=== PATIENT | female | born 2000 ===

== ENCOUNTER 2025-03-08 20:17 | Inpatient (IN) | payer SELFPAY ==
[2025-03-08] MEDS ORDERED: Ondansetron PF 4 MG/2 ML Vial IVP PRN (20:51)
[2025-03-08] MEDS ORDERED: Tranexamic Acid 1,000 MG/10 ML VIAL IVP PRN (20:51)
[2025-03-08] MEDS ORDERED: Diphenoxylate HCl/Atropine Tablet PO PRN (20:51)
[2025-03-08] MEDS ORDERED: Carboprost 250 MCG/ML AMP IM PRN (20:51)
[2025-03-08] MEDS ORDERED: Acetaminophen 500 MG TAB PO PRN (20:51)
[2025-03-08] MEDS ORDERED: Lidocaine 1% (PF) 30 ML VIAL SC PRN (20:51)
[2025-03-08] MEDS ORDERED: hydrALAZINE 20 MG/ML VIAL SLOW IVP PRN (20:51)
[2025-03-08] MEDS ORDERED: Oxytocin 30 units/NS 500 ML 500 ML IV SCH (21:00)
[2025-03-08 21:05] VITALS: BMI 30.9
[2025-03-08 21:10] LABS: Hematocrit 39.0 % (34.9-44.5); Hemoglobin 13.3 g/dL (12.0-15.5); Mean Corpuscular Hemoglobin 27.5 pg (27.0-33.0); Mean Corpuscular Volume 80.7 fL (81.6-98.3); Platelet Count 335 10x3/uL (150-450); Red Blood Cell (RBC) Count 4.83 10x6/uL (3.90-5.03); White Blood Cell (WBC) Count 16.93 10x3/uL (3.5-10.5)
[2025-03-08 21:54] LABS: Syphilis Antibody Index 0.07 S/CO (<1.00 Non-Reactive)
[2025-03-08 21:55] LABS: Hep B Surf Ag - L&D Non-Reactive S/CO (NonReactive)
[2025-03-08] MEDS ORDERED: Oxytocin 10 UNITS/ML VIAL ONE (22:06)
[2025-03-08] MEDS ORDERED: Oxytocin 10 UNITS/ML VIAL IM SCH (22:15)
[2025-03-09] MEDS: Methylergonovine 0.2 MG/ML VIAL IM PRN (03:14)
[2025-03-09] MEDS: Ibuprofen 800 MG TAB PO PRN (05:10)
[2025-03-09] MEDS ORDERED: HYDROcodone/Acetaminophen 5/325 mg Tablet PO PRN (05:13)
[2025-03-09] MEDS ORDERED: Boostrix 0.5 ML (Tdap) VIAL (>/=7 yrs of age) IM ONE (05:13)
[2025-03-09] MEDS ORDERED: Milk Of Magnesia 30 ML UDCUP PO PRN (05:13)
[2025-03-09] MEDS ORDERED: Lanolin Ointment 7 GM TUBE TOP PRN (05:13)
[2025-03-09] MEDS ORDERED: Bisacodyl 10 MG SUPP PR PRN (05:13)
[2025-03-09] MEDS ORDERED: hydrALAZINE 20 MG/ML VIAL SLOW IVP PRN (05:13)
[2025-03-09] MEDS ORDERED: Benzocaine-Menthol 82.5 ML CAN TOP PRN (05:13)
[2025-03-09] MEDS: Ibuprofen 800 MG TAB PO SCH (21:25)
[2025-03-10] MEDS: Ferrous Sulfate 325 MG TAB PO SCH (04:10)
[2025-03-10 22:42] VITALS: BP 118/68; TEMP 97.8
== END 2025-03-10 14:38 | disposition home or self-care (01) | DRG 807 ==
LOC: CSHLD/OP 20:17 → CSHLD 20:53 → CSHPP 03-09 05:43
PROVIDERS: ADMIT Family Medicine; ATTEND Family Medicine
PROC: 10E0XZZ Delivery of Products of Conception, External Approach (ICD-10-PCS; principal; 2025-03-09)
PROC: 0HQ9XZZ Repair Perineum Skin, External Approach (ICD-10-PCS; 2025-03-09)
DX: O48.0 Post-term pregnancy (principal); O70.0 First degree perineal laceration during delivery; Z37.0 Single live birth; Z3A.40 40 weeks gestation of pregnancy
CPT/HCPCS: 36415; 85027; 86780; 86850; 86900; 86901; 87340; 99285; J2210